=== PATIENT | male | born 1955 | race Caucasian/White ===

== ENCOUNTER 2018-08-31 11:36 | Day surgery (SDC) | payer MEDICARE ==
[~2018-08-31] VITALS: Ht 193 cm; Wt 93.9 kg
[~2018-08-31 11:36] MED LIST: ASPI81CH PO; ATEN50 PO; Cinnamon500 MG; DESM.01SO; DOXA2 PO; FLONASE ALLERG9.9 ML NS; Fish Oil300 MG PO; GLUC500 PO; MULVITMIND PO; OMEP20ER PO; OXYB5 PO; Pravachol40 MG PO; Protopic100 G1 TP; Rapaflo8 MG PO; TRIA80TC TOP; TURMERIC500 MG PO
== END 2018-08-31 13:55 | disposition home or self-care (01) ==
LOC: ORSCSDS 11:36
PROVIDERS: Internal Medicine Gastroenterology
PROC: 0DBM8ZX Excision of Descending Colon, Via Natural or Artificial Opening Endoscopic, Diagnostic (ICD-10-PCS; principal; 2018-08-31 13:00)
DX: Z12.11 Encounter for screening for malignant neoplasm of colon (principal); D12.4 Benign neoplasm of descending colon; K57.30 Diverticulosis of large intestine without perforation or abscess without bleeding; Z86.010 Personal history of colon polyps; Z80.0 Family history of malignant neoplasm of digestive organs; I10 Essential (primary) hypertension; E11.9 Type 2 diabetes mellitus without complications; Z79.84 Long term (current) use of oral hypoglycemic drugs; Z79.899 Other long term (current) drug therapy
CPT/HCPCS: 82947; 88305; J2704; J7120

== ENCOUNTER → 2020-12-12 | Outpatient (CLI) | payer MEDICARE | END | disposition home or self-care (01) | LOC: LAB SHORT 14:55 → LAB 14:55 | DX: R35.0 Frequency of micturition (principal) | CPT/HCPCS: 87086 ==

== ENCOUNTER → 2021-06-07 | Outpatient (CLI) | payer OTHER ==
[2021-06-11 15:08] LABS: DOPAMINE, URINE 115 ug/L (Undefined)
[2021-06-11 17:08] LABS: METANEPHRINE, UR 18 ug/L (Undefined)
== END | disposition home or self-care (01) ==
LOC: LAB SHORT 09:30
PROVIDERS: Internal Medicine Endocrinology, Diabetes & Metabolism
DX: I10 Essential (primary) hypertension (principal)
CPT/HCPCS: 82384; 83835

== ENCOUNTER 2021-07-06 13:50 | Inpatient (IN) | payer OTHER ==
[~2021-07-06] VITALS: Wt 90.6 kg
[~2021-07-06 13:50] MED LIST changes: -CATAPRES-TTS 21 EAC1 TOP; -Hair, Skin & N1 EACH PO; -LOSARTAN-HCTZ1 EAC5 PO; -METF500 PO; -PRAV20 PO; -TRAZ50 PO; -Triamcinolone A15 G3 TOP
[2021-07-06] MEDS ORDERED: CATAPRES-TTS 21 EAC1 TOP (14:50)
[2021-07-06] MEDS ORDERED: METF500 PO (14:51)
[2021-07-06] MEDS ORDERED: LOSARTAN-HCTZ1 EAC5 PO (14:51)
[2021-07-06] MEDS ORDERED: PRAV20 PO (14:52)
[2021-07-06] MEDS ORDERED: TRAZ50 PO (14:52)
[2021-07-06] MEDS ORDERED: Triamcinolone A15 G3 TOP (14:53)
[2021-07-06] MEDS ORDERED: Hair, Skin & N1 EACH PO (14:53)
--- NOTE | 2021-07-06 14:56 | NUR ---
ARRIVED TO ROOM VIA W/C, A&OX3, INDEPENDENT IN ROOM, DENIES ANY PAIN AT THIS TIME, REPORTS HAVING SLIGHT NAUSEA, DR. MYERS NOTIFIED PT IS HERE AT TIME OF ARRIVAL, ORIENTED TO ROOM AND CALL SYSTEM.
--- NOTE | 2021-07-06 16:30 | NUR ---
PATIENT CAME FROM ER TODAY 07/06/21 AT AROUND 1500. SBO PATIENT IS ALERT AND ORIENTED X4. VS ARE WNL AND IS ON RA. PATIENT DENIES PAIN AT THIS TIME BUT A SMALL AMOUNT OF NAUSEA. ABD TONES ARE HEARD THROUGHOUT. STOMACH IS TENDER TO TOUCH. CALL LIGHT WITHIN REACH. THE PLAN IS TO HAVE IV FLUIDS AND TO MONITOR FOR VOMITING OR HAVING A BM.
[2021-07-06 16:42] LABS: BASOPHILS ABSOLUTE AUTO 0.02 K/mm3 (0.00-0.23); BASOPHILS PERCENT AUTO 0 % (0-2); EOSINOPHILS ABSOLUTE AUTO 0.04 K/mm3 (0.00-0.68); EOSINOPHILS PERCENT AUTO 0 % (0-6); Hematocrit 46.3 % (37.0-53.0); Hemoglobin 16.3 g/dL (13.5-17.5); IMMATURE GRAN ABSOLUTE AUTO 0.06 K/mm3 (0.00-0.10); IMMATURE GRAN PERCENT AUTO 1 % (0-1); LYMPHOCYTES ABSOLUTE AUTO 1.03 K/mm3 (0.84-5.20); LYMPHOCYTES PERCENT AUTO 11 % (21-46); MONOCYTES ABSOLUTE AUTO 0.78 K/mm3 (0.16-1.47); MONOCYTES PERCENT AUTO 8 % (4-13); Mean Corpuscular HGB 31.3 pg (26.0-34.0); Mean Corpuscular HGB Conc 35.2 g/dL (31.5-36.5); Mean Corpuscular Volume 89 fL (80-100); Mean Platelet Volume 11.5 fL (9.1-12.4); NEUTROPHILS ABSOLUTE AUTO 7.35 K/mm3 (1.96-9.15); NEUTROPHILS PERCENT AUTO 79 % (41-73); Platelet Count 174 K/mm3 (150-400); RDW Standard Deviation 38.9 fL (35.1-46.3); Red Blood Cell Count 5.21 M/mm3 (4.30-5.90); White Blood Cell Count 9.28 K/mm3 (4.00-11.30)
[2021-07-06 17:06] LABS: Magnesium, Blood 1.9 mg/dL (1.6-2.4)
[2021-07-06 17:14] LABS: Anion Gap 9 mmol/L (6-16); Blood Urea Nitrogen 25 mg/dL (8-24); Bun/Creatinine Ratio 26.6 (12.0-20.0); CO2, Blood 28 mmol/L (21-32); Calcium, Blood 9.9 mg/dL (8.5-10.1); Chloride, Blood 101 mmol/L (98-108); Creatinine, Blood 0.94 mg/dL (0.60-1.20); Glomerular Filtration Rate >60 (60-); Glucose, Blood 227 mg/dL (70-99); Phosphorus, Blood 5.1 mg/dL (2.5-4.9); Potassium, Blood 3.4 mmol/L (3.5-5.5); Sodium, Blood 138 mmol/L (136-145)
--- NOTE | 2021-07-06 18:59 | NUR ---
Pt. is awake and in bed. Pt. welcomes my visit. Responding to a request for Advanced Directive. Pt. declined, stating he already had his decisions set up. Pt. verbalized gratitude for the spiritual care visit.
[2021-07-07 04:18] LABS: BASOPHILS ABSOLUTE AUTO 0.03 K/mm3 (0.00-0.23); BASOPHILS PERCENT AUTO 1 % (0-2); EOSINOPHILS PERCENT AUTO 3 % (0-6); Hematocrit 43.3 % (37.0-53.0); Hemoglobin 14.7 g/dL (13.5-17.5); IMMATURE GRAN ABSOLUTE AUTO 0.02 K/mm3 (0.00-0.10); IMMATURE GRAN PERCENT AUTO 0 % (0-1); LYMPHOCYTES ABSOLUTE AUTO 1.35 K/mm3 (0.84-5.20); LYMPHOCYTES PERCENT AUTO 21 % (21-46); MONOCYTES ABSOLUTE AUTO 0.63 K/mm3 (0.16-1.47); MONOCYTES PERCENT AUTO 10 % (4-13); Mean Corpuscular HGB 31.1 pg (26.0-34.0); Mean Corpuscular HGB Conc 33.9 g/dL (31.5-36.5); Mean Corpuscular Volume 92 fL (80-100); Mean Platelet Volume 11.3 fL (9.1-12.4); NEUTROPHILS ABSOLUTE AUTO 4.11 K/mm3 (1.96-9.15); NEUTROPHILS PERCENT AUTO 65 % (41-73); Platelet Count 153 K/mm3 (150-400); RDW Coefficient Variation 12.2 % (11.7-14.2); RDW Standard Deviation 40.5 fL (35.1-46.3); Red Blood Cell Count 4.73 M/mm3 (4.30-5.90); White Blood Cell Count 6.34 K/mm3 (4.00-11.30)
[2021-07-07 04:35] LABS: Anion Gap 6 mmol/L (6-16); Blood Urea Nitrogen 29 mg/dL (8-24); Bun/Creatinine Ratio 33.7 (12.0-20.0); CO2, Blood 30 mmol/L (21-32); Chloride, Blood 103 mmol/L (98-108); Creatinine, Blood 0.86 mg/dL (0.60-1.20); Glomerular Filtration Rate >60 (60-); Glucose, Blood 237 mg/dL (70-99); Magnesium, Blood 2.2 mg/dL (1.6-2.4); Potassium, Blood 3.5 mmol/L (3.5-5.5); Sodium, Blood 139 mmol/L (136-145)
--- NOTE | 2021-07-07 05:21 | NUR ---
SHIFT SUMMARY PT AOX4. DIAGNOSED WITH PARTIAL SBO, NG TUBE WAS PLACED YESTERDAY. NO NG TUBE OUTPUT/DRAINAGE OVERNIGHT. PT REPORTS NO PAIN AND NO NAUSEA SINCE NG TUBE WAS PLACED. PT HAS BEEN COMFORTBLE IN BED, STS THAT HE WAS ABLE TO SLEEP GOOD OVERNIGHT. NPO. CBG AT Q6 (239 AT MIDNIGHT, 237 IN THE AM). D51/2NS INFUSING AT 75MLS/HR. PT ALSO REPORTS PASSING FLATUS. BT PRESENT/ACTIVE. DENIES ANY URGE TO HAVE A BM OR NO BM OVERNIGHT. VSS. VOIDING SMALL AMOUNT (BASELINE DUE TO BPH). PT DENIES CHEST PAIN AND DENIES SOB. CALL LIGHT WITHIN REACH. WILL PROVIDE REPORT TO ONCOMING NURSE.
--- NOTE | 2021-07-07 16:18 | NUR ---
SPOKE W/ DR. MYERS REGAURDING PT GI STATUS. ORDERS RECIEVED TO CLAMP NG TUBE D/T LITTLE TO NO OUTPUT. LEAVE NG IN PLACE IN CASE OF RETURN OF N/V. START CLEAR LIQUIDS, POSS ADVANCE IN AM IF PT IS TOLERATING WELL.
--- NOTE | 2021-07-07 17:59 | NUR ---
SHIFT SUMMARY A&O X4, VSS ON RA. PT HAS SBO W/ NG TUBE TO LOW INT SUCTION PLACED. HAD VERY LITTLE TO ZERO OUTPUT THIS SHIFT. CLAMPED PER DR. MYERS AND STARTED ON CLEAR LIQUID DIET, TOLERATING WELL, MAY ADVANCE DIET IN AM IF STILL TOLERATING WELL, PER DR. MYERS. PT DENIES N/V AT THIS TIME & HAS REPORTED FREQ FLATUS. ABD IS SOFT AND PT DENIES PAIN TO ABD AT THIS TIME. AMBULATED A LARGE DISTANCE IN HALLWAYS X2 THIS SHIFT. HX OF DM TYPE 2, CBG AC/HS, DOES NOT TAKE INSULIN @ HOME AND REFUSED COVERAGE AT THIS TIME. PT IS PLEASANT AND COOPERATIVE, IND IN ROOM. WILL CONTINUE TO MONITOR AND REPORT TO ONCOMING RN.
--- NOTE | 2021-07-07 18:44 | NUR ---
PT STATES THAT HE CHANGES CLONIDINE PATCH EVERY FRIDAY. NOT PLACING A NEW ONE AT THIS TIME. WILL REPLACE FRIDAY IF PT IS STILL HERE.
--- NOTE | 2021-07-08 05:05 | NUR ---
SHIFT SUMMARY: TYRONE IS A&OX4. VSS, NO ACUTE EVENTS OVERNIGHT. HE IS INDEPDENT IN THE ROOM, NG TUBE REMAINS CLAMPED, TOLERATING CLEAR LIQUIDS WITHOUT NAUSEA OR VOMITING. HE REPORTS PASSING GAS AND FEELING HIS ABDOMEN "RUMBLING", BUT HAS NOT HAD A BOWEL MOVEMENT SINCE FRIDAY. HE DID ASK ABOUT BOWEL CARE, WILL REQUEST FROM DAY SHIFT HOSPITALIST. HE HAS DENIED THE NEED FOR PAIN MEDICATION THIS SHIFT. HE IS LYING IN BED WITH THE CALL LIGHT IN REACH. IV TO LEFT FOREARM SALINE LOCKED. WILL REPORT TO DAY SHIFT RN.
--- NOTE | 2021-07-08 14:00 | NUR ---
DC'D NG TUBE, PER DR. MYERS. STARTING PT ON A SOFT, REG DIET.
--- NOTE | 2021-07-08 18:05 | NUR ---
SHIFT SUMMARY PT IS A&O X4, IND IN ROOM. NG TUBE WAS REMOVED TODAY ABOUT 1400. PT ADVANCED TO FULL LIQUIDS, TOLERATING WELL. DENIES N/V, DENIES ABD PAIN. PASSING FLATUS VERY FREQ, NO BM TODAY. VSS, CBG AC/HS, PT REFUSES INSULIN COVERAGE D/T NOT TAKING INSULIN @ HOME & STARTED BACK ON METFORMIN TODAY. AMBULATED HALLWAYS MULTIPLE TIMES T/O SHIFT, VERY PLEASANT W/ STAFF. WILL REPORT TO ONCOMING RN.
--- NOTE | 2021-07-08 19:30 | NUR ---
RECEIVED REPORT AND ASSUMED CARE OF PT. HE IS UP WALKING THE HALLS, STATES HE IS DOING VERY WELL, REPORTS THE SORE THROAT IS IMPROVING AND THAT HE HAD A SMALL BOWEL MOVEMENT. HE DENIES ANY NEEDS AT THIS TIME. WCJOSE LUIS.
[2021-07-09 04:41] LABS: BASOPHILS ABSOLUTE AUTO 0.02 K/mm3 (0.00-0.23); BASOPHILS PERCENT AUTO 0 % (0-2); EOSINOPHILS ABSOLUTE AUTO 0.26 K/mm3 (0.00-0.68); EOSINOPHILS PERCENT AUTO 5 % (0-6); Hematocrit 38.9 % (37.0-53.0); Hemoglobin 13.5 g/dL (13.5-17.5); IMMATURE GRAN ABSOLUTE AUTO 0.03 K/mm3 (0.00-0.10); IMMATURE GRAN PERCENT AUTO 1 % (0-1); LYMPHOCYTES ABSOLUTE AUTO 1.36 K/mm3 (0.84-5.20); LYMPHOCYTES PERCENT AUTO 26 % (21-46); MONOCYTES ABSOLUTE AUTO 0.53 K/mm3 (0.16-1.47); MONOCYTES PERCENT AUTO 10 % (4-13); Mean Corpuscular HGB 31.6 pg (26.0-34.0); Mean Corpuscular HGB Conc 34.7 g/dL (31.5-36.5); Mean Corpuscular Volume 91 fL (80-100); Mean Platelet Volume 11.3 fL (9.1-12.4); NEUTROPHILS ABSOLUTE AUTO 2.99 K/mm3 (1.96-9.15); NEUTROPHILS PERCENT AUTO 58 % (41-73); Platelet Count 119 K/mm3 (150-400); RDW Coefficient Variation 11.9 % (11.7-14.2); RDW Standard Deviation 39.4 fL (35.1-46.3); Red Blood Cell Count 4.27 M/mm3 (4.30-5.90); White Blood Cell Count 5.19 K/mm3 (4.00-11.30)
--- NOTE | 2021-07-09 05:03 | NUR ---
SHIFT SUMMARY: TYRONE IS A&OX4. VSS, NO ACUTE EVENTS OVERNIGHT. HE IS INDEPENDENT IN THE ROOM, DENIES PAIN, REPORTS URINATING WITHOUT DIFFICULTY, AND IS TOLERATING PO INTAKE WELL. HE IS LYING IN BED WITH THE CALL LIGHT IN REACH. WILL REPORT TO DAY SHIFT RN.
[2021-07-09 05:04] LABS: Anion Gap 7 mmol/L (6-16); Blood Urea Nitrogen 20 mg/dL (8-24); Bun/Creatinine Ratio 22.2 (12.0-20.0); CO2, Blood 29 mmol/L (21-32); Calcium, Blood 8.9 mg/dL (8.5-10.1); Chloride, Blood 103 mmol/L (98-108); Glomerular Filtration Rate >60 (60-); Glucose, Blood 183 mg/dL (70-99); Potassium, Blood 3.3 mmol/L (3.5-5.5); Sodium, Blood 139 mmol/L (136-145)
--- NOTE | 2021-07-09 08:00 | NUR ---
PT PLEASANT TALKATIVE. STATES OUTDOORS PERSON. H/R REG, NO MURMER NOTED. NO TELE. LUNGS CLEAR, RESP EASY, UNLABORED. ON R.A. BT HYPO, BUT SOME NOTED. IS PASSING GAS. ALSO SMALL PEBBLE STOOL LAST AICHA. IN [place]. OKAYED BROWN COW DRINK, THEN HOME TODAY. PT IS UP WALKING HALLS, VOOIDS INDEPENDANT TO BATHROOM. BED IN LOW POSITION, CALL LITE IN REACH, CALLS APPROP
--- NOTE | 2021-07-09 11:22 | NUR ---
Per Chart Review with Dr. Gr, patient appropriate to discharge home with spouse. Spouse present in patient's room and will provide transportation. Patient independent and no needs anticipated. I scheduled a hospital follow-up with Dr. Munroe on Sunday, July 11, 2021 at 12:15. Discussed the importance of attending this appointment, so his PCP can closely follow-up. Patient agreeable to discharge plan, denies barriers.
--- NOTE | 2021-07-09 12:04 | NUR ---
PT STATES ABOUT 4 INCH HARD BM JUST NOW.
--- NOTE | 2021-07-09 12:47 | NUR ---
1230 PT DISCHARGE REVIEWED WITH PT. HE VERBALIZED UNDERSTANDING MEDS AND INSTRUCT. IV PULLED INTACT. NO TELE. PT WALKED TO DOOR BY AIDE AT 1232
== END 2021-07-09 12:41 | disposition home or self-care (01) | DRG 389 ==
LOC: SURS 13:50
PROVIDERS: ADMIT Internal Medicine
DX: K56.609 Unspecified intestinal obstruction, unspecified as to partial versus complete obstruction (principal); N13.8 Other obstructive and reflux uropathy; N40.1 Benign prostatic hyperplasia with lower urinary tract symptoms; E11.8 Type 2 diabetes mellitus with unspecified complications; Z79.4 Long term (current) use of insulin; Z90.49 Acquired absence of other specified parts of digestive tract; I10 Essential (primary) hypertension; E78.5 Hyperlipidemia, unspecified; F41.9 Anxiety disorder, unspecified; F32.A Depression, unspecified; R14.3 Flatulence; Z88.8 Allergy status to other drugs, medicaments and biological substances; E87.6 Hypokalemia
CPT/HCPCS: 36415; 80048; 82947; 83735; 84100; 85025; A9270; C9113; J1650; J2405; J3480; J7042

== ENCOUNTER → 2021-07-06 | Outpatient (CLI) | payer OTHER ==
[~2021-07-06] MED LIST changes: +CATAPRES-TTS 21 EAC1 TOP; +Hair, Skin & N1 EACH PO; +LOSARTAN-HCTZ1 EAC5 PO; +METF500 PO; +PRAV20 PO; +TRAZ50 PO; +Triamcinolone A15 G3 TOP
[2021-07-06 08:09] LABS: BASOPHILS ABSOLUTE AUTO 0.03 K/mm3 (0.00-0.23); BASOPHILS PERCENT AUTO 0 % (0-2); EOSINOPHILS ABSOLUTE AUTO 0.05 K/mm3 (0.00-0.68); EOSINOPHILS PERCENT AUTO 1 % (0-6); Hematocrit 45.3 % (37.0-53.0); Hemoglobin 16.2 g/dL (13.5-17.5); IMMATURE GRAN ABSOLUTE AUTO 0.03 K/mm3 (0.00-0.10); IMMATURE GRAN PERCENT AUTO 0 % (0-1); LYMPHOCYTES ABSOLUTE AUTO 0.68 K/mm3 (0.84-5.20); LYMPHOCYTES PERCENT AUTO 7 % (21-46); MONOCYTES PERCENT AUTO 6 % (4-13); Mean Corpuscular HGB 31.4 pg (26.0-34.0); Mean Corpuscular HGB Conc 35.8 g/dL (31.5-36.5); Mean Corpuscular Volume 88 fL (80-100); Mean Platelet Volume 11.2 fL (9.1-12.4); NEUTROPHILS ABSOLUTE AUTO 8.18 K/mm3 (1.96-9.15); NEUTROPHILS PERCENT AUTO 86 % (41-73); Platelet Count 173 K/mm3 (150-400); RDW Coefficient Variation 11.9 % (11.7-14.2); RDW Standard Deviation 38.4 fL (35.1-46.3); Red Blood Cell Count 5.16 M/mm3 (4.30-5.90); White Blood Cell Count 9.57 K/mm3 (4.00-11.30)
[2021-07-06 08:18] LABS: Alanine Aminotransfer (ALT/SGP 56 U/L (12-78); Albumin, Blood 4.3 g/dL (3.4-5.0); Albumin/Globulin Ratio 1.5 (0.8-1.8); Alk Phos 59 U/L (40-126); Amylase, Blood 36 U/L (25-115); Anion Gap 13 mmol/L (6-16); Aspartate Aminotrans (AST/SGOT 22 U/L (12-37); Bilirubin, Total 1.5 mg/dL (0.1-1.0); Blood Urea Nitrogen 20 mg/dL (8-24); Bun/Creatinine Ratio 23.3 (12.0-20.0); CO2, Blood 28 mmol/L (21-32); Calcium, Blood 9.5 mg/dL (8.5-10.1); Chloride, Blood 97 mmol/L (98-108); Creatinine, Blood 0.86 mg/dL (0.60-1.20); Globulin, Blood 2.9 g/dL (2.2-4.0); Glomerular Filtration Rate >60 (60-); Glucose, Blood 233 mg/dL (70-99); Potassium, Blood 3.2 mmol/L (3.5-5.5); Sodium, Blood 138 mmol/L (136-145); Total Protein, Blood 7.2 g/dL (6.4-8.2)
[2021-07-06 08:50] LABS: Source, Urine Clean Catch
[2021-07-06 08:59] LABS: Bacteria Not Seen /hpf; Mucus Mod (0-Heavy); Red Blood Cells, Urine Rare /hpf (0-2); Squamous Epithelial Cells Few /hpf (Few); White Blood Cells, Urine 0-2 /hpf (0-5)
== END ==
LOC: LAB SHORT 08:01
PROVIDERS: General Practice
DX: R10.9 Unspecified abdominal pain (principal)
CPT/HCPCS: 80053; 81015; 82150; 84484; 85025

== ENCOUNTER 2023-03-25 07:49 | Day surgery (SDC) | payer OTHER ==
[~2023-03-25] VITALS: Ht 193 cm; Wt 88.7 kg
[2023-03-25] VITALS (16 sets, daily range): BP systolic 118–150; BP diastolic 50–89
[~2023-03-25 07:49] MED LIST changes: +BENADRYL25 MG PO; +CATAPRES-TTS 21 EAC1 TOP; +Hair, Skin & N1 EACH PO; +LOSARTAN-HCTZ1 EAC5 PO; +MAGNESIUM POTASSIUM PO; +METF500 PO; +OLMESARTAN-HCTZ PO; +PRAV20 PO; +PREVAGEN PO; -Pravachol40 MG PO; +SUPER BEETS PO; +TRAZ50 PO; +Triamcinolone A15 G3 TOP; +UBID10 PO; +VITAMIN D325 MC3 PO; +Vitamin B-12100 MCG PO; +[UNRECOGNIZED DRUG - OTHER]
--- NOTE | 2023-03-25 09:55 | NUR ---
Ambulatory in Day SurgeryPre-Op teaching done. Pt verbalizes understanding. History, Chart, Medications and Allergies reviewed before start of procedure.Patient confirms NPO status and agrees with scheduled surgery.
--- NOTE | 2023-03-25 16:24 | NUR ---
SHIFT SUMMARY PT PAINFUL THIS SHIFT, PAIN MEDICATED PER EMR. PT WORKED WITH THERAPY TODAY. VSS, LUNGS CTA, BOWEL SOUNDS +. PT IS POD 2 FROM LEFT AKA. STUMP SOCK IN PLACE, DRESSING C/D/I. MARTÍNEZ CATH REMOVED THIS AM. PT RESTING COMFORTABLY, BREATHING EVEN AND UNLABORED. BED IN LOWEST POSITION, CALL LIGHT WITHIN REACH.
--- NOTE | 2023-03-25 17:44 | NUR ---
SHIFT SUMMARY PT ADMITTED TO SURGICAL FLOOR FROM PACU. PT HAD L KNEE REPLACEMENT. PT DENIES NAUSEA, SOME C/O HEART BURN AND BELCHING AFTER LUNCH. PT STATES HE FEELS BETTER NOW. PT REPORTS MINIMAL PAIN, MEDICATED PER EMR. POLAR PACK IN PLACE, DRESSING C/D/I. PT IS RESTING COMFORTABLY, BREATHING EVEN AND NONLABORED. CALL LIGHT WITHIN REACH.
[2023-03-26 04:24] VITALS: BP 158/76
[2023-03-26 04:59] LABS: BASOPHILS ABSOLUTE AUTO 0.03 K/mm3 (0.00-0.23); BASOPHILS PERCENT AUTO 0 % (0-2); EOSINOPHILS ABSOLUTE AUTO 0.16 K/mm3 (0.00-0.68); EOSINOPHILS PERCENT AUTO 2 % (0-6); Hemoglobin 12.7 g/dL (13.5-17.5); IMMATURE GRAN ABSOLUTE AUTO 0.04 K/mm3 (0.00-0.10); IMMATURE GRAN PERCENT AUTO 1 % (0-1); LYMPHOCYTES ABSOLUTE AUTO 1.19 K/mm3 (0.84-5.20); LYMPHOCYTES PERCENT AUTO 18 % (21-46); MONOCYTES ABSOLUTE AUTO 0.45 K/mm3 (0.16-1.47); MONOCYTES PERCENT AUTO 7 % (4-13); Mean Corpuscular HGB 31.8 pg (26.0-34.0); Mean Corpuscular HGB Conc 35.3 g/dL (31.5-36.5); Mean Corpuscular Volume 90 fL (80-100); Mean Platelet Volume 11.1 fL (9.1-12.4); NEUTROPHILS ABSOLUTE AUTO 4.82 K/mm3 (1.96-9.15); NEUTROPHILS PERCENT AUTO 72 % (41-73); Platelet Count 107 K/mm3 (150-400); RDW Coefficient Variation 11.9 % (11.7-14.2); RDW Standard Deviation 39.2 fL (35.1-46.3); White Blood Cell Count 6.69 K/mm3 (4.00-11.30)
[2023-03-26 05:36] LABS: Bun/Creatinine Ratio 23.4 (12.0-20.0); Calcium, Blood 8.5 mg/dL (8.5-10.1); Creatinine, Blood 0.94 mg/dL (0.60-1.20); Potassium, Blood 3.6 mmol/L (3.5-5.5)
--- NOTE | 2023-03-26 06:43 | NUR ---
POD 1 S/P L TKA. PT VSS T/O NIGHT. DRESSING CDI. PULSES AND CAP REFILL WNL. PAIN MGD W/2 OXYCODONE W/REP RELIEF. PT JEANIE REG PO, DENIED N/V, IS VOIDING URINE W/O DIFFICULTY. PT UP OOB W/FWW+SBA, JEANIE WELL. PLAN TO MOBILIZE W/PT AND DC HOME WHEN CLEARED.
[2023-03-26 07:32] VITALS: BP 143/74
[2023-03-26] MEDS ORDERED: ASPI81CH PO (09:06)
[2023-03-26] MEDS ORDERED: Percocet 5-3251 EACH PO (09:06)
--- NOTE | 2023-03-26 09:29 | NUR ---
DISCHARGE NOTE: PATIENT AND WERE EDUCATED ON DISCHARGE INSTRUCTIONS. BOTH VERBALIZED UNDERSTANDING OF INSTRUCTIONS AND HAD NO FURTHER QUESTIONS AT THIS TIME. IV WAS TAKEN OUT AND WNL. PAIN IS MANAGED WITH PAIN MEDS. PATIENTS WAS GIVEN THE HARD PERSCRIPTIONS YESTERDAY AND THEY ARE FILLED WAITING AT HOME. PATIENTS LEFT KNEE HAS AN JACKIE WRAP AND AQUACEL THAT ARE C/D/I. DENIES NUMBNESS OR TINGLING IN ALL EXTREMITIES. PATIENT IS DRESSED AND HAS ALL PERSONAL ITEMS IN THE ROOM GATHERED. HE IS TOLERATING PO INTAKE AND IS VOIDING. PATIENT IS BEING WHEELCHAIRED OUT TO HIS WIFES CAR TO BE TAKEN HOME.
== END 2023-03-26 09:37 | disposition home or self-care (01) ==
LOC: ORSCMMR 07:49 → ORD 09:15 → ORSCMMR 09:15 → ORD 10:00 → SURS 14:26 → ORSCMMR 03-26 09:37
PROVIDERS: Orthopaedic Surgery
PROC: 0SRD0JA Replacement of Left Knee Joint with Synthetic Substitute, Uncemented, Open Approach (ICD-10-PCS; principal; 2023-03-25 09:15)
DX: M17.12 Unilateral primary osteoarthritis, left knee (principal); I10 Essential (primary) hypertension; E11.9 Type 2 diabetes mellitus without complications; E03.9 Hypothyroidism, unspecified; Z79.84 Long term (current) use of oral hypoglycemic drugs; Z79.899 Other long term (current) drug therapy
CPT/HCPCS: 73560-LT; 80048; 82947; 85025; 97116; 97161; 97530; A9270; C1713; C1776; J0171; J0690; J0735; J1885; J2250; J2371; J2704; J2795; J3010; J3370; J7120

== ENCOUNTER → 2024-08-11 | Outpatient (CLI) | payer OTHER ==
[~2024-08-11] MED LIST changes: +OLMESARTAN-HCT1 EAC4; +Percocet 5-3251 EACH PO
== END ==
LOC: LAB SHORT 09:37 → LAB 09:37
DX: R30.0 Dysuria (principal)
CPT/HCPCS: 87086

== ENCOUNTER → 2025-02-18 | Outpatient (CLI) | payer OTHER ==
[2025-02-18 08:19] LABS: BASOPHILS ABSOLUTE AUTO 0.03 K/mm3 (0.00-0.23); BASOPHILS PERCENT AUTO 1 % (0-2); EOSINOPHILS ABSOLUTE AUTO 0.30 K/mm3 (0.00-0.68); EOSINOPHILS PERCENT AUTO 6 % (0-6); Hematocrit 42.8 % (37.0-53.0); Hemoglobin 14.9 g/dL (13.5-17.5); IMMATURE GRAN ABSOLUTE AUTO 0.01 K/mm3 (0.00-0.10); IMMATURE GRAN PERCENT AUTO 0 % (0-1); LYMPHOCYTES ABSOLUTE AUTO 1.02 K/mm3 (0.84-5.20); LYMPHOCYTES PERCENT AUTO 19 % (21-46); MONOCYTES ABSOLUTE AUTO 0.35 K/mm3 (0.16-1.47); MONOCYTES PERCENT AUTO 6 % (4-13); Mean Corpuscular HGB Conc 34.8 g/dL (31.5-36.5); Mean Corpuscular Volume 90 fL (80-100); NEUTROPHILS ABSOLUTE AUTO 3.77 K/mm3 (1.96-9.15); NEUTROPHILS PERCENT AUTO 69 % (41-73); NRBC ABSOLUTE 0.00 K/mm3 (0.00-0.02); NRBC Auto 0.0 /100 WBC (0.0-0.2); Platelet Count 156 K/mm3 (150-400); RDW Coefficient Variation 12.0 % (11.7-14.2); RDW Standard Deviation 38.7 fL (35.1-46.3)
[2025-02-18 08:30] LABS: Alanine Aminotransfer (ALT/SGP 27.0 U/L (12-78); Albumin, Blood 4.1 g/dL (3.4-5.0); Albumin/Globulin Ratio 1.3 (0.8-1.8); Anion Gap 12.0 mmol/L (3-11); Aspartate Aminotrans (AST/SGOT 19.0 U/L (12-37); Bilirubin, Total 0.6 mg/dL (0.1-1.0); Blood Urea Nitrogen 21.0 mg/dL (8-24); CO2, Blood 31.0 mmol/L (21-32); Calcium, Blood 9.6 mg/dL (8.5-10.1); Chloride, Blood 102.0 mmol/L (98-108); Creatinine, Blood 0.95 mg/dL (0.60-1.20); Globulin, Blood 3.1 g/dL (2.2-4.0); Glucose, Blood 257.0 mg/dL (70-99); Potassium, Blood 3.3 mmol/L (3.5-5.5); Sodium, Blood 142.0 mmol/L (136-145); Total Protein, Blood 7.2 g/dL (6.4-8.2)
== END ==
LOC: LAB SHORT 08:10 → LAB 08:10
PROVIDERS: Physician Assistant
DX: R07.9 Chest pain, unspecified (principal); E11.9 Type 2 diabetes mellitus without complications
CPT/HCPCS: 80053; 83036; 83880; 84484; 85025; 85379